=== PATIENT | male | born 1990 | race Caucasian/White ===

== ENCOUNTER 2017-03-26 13:47 | Emergency (ER) | payer OTHER ==
[~2017-03-26] VITALS: Ht 170.2 cm; Wt 80.0 kg
[2017-03-26 14:50] VITALS: BP 135/84
== END 2017-03-26 14:50 | disposition home or self-care (01) ==
LOC: ED 13:47
DX: S50.01XA Contusion of right elbow, initial encounter (principal); M77.9 Enthesopathy, unspecified; R03.0 Elevated blood-pressure reading, without diagnosis of hypertension; W17.89XA Other fall from one level to another, initial encounter; Y93.89 Activity, other specified; Y99.8 Other external cause status; Y92.89 Other specified places as the place of occurrence of the external cause

== ENCOUNTER 2017-05-23 14:49 | Emergency (ER) | payer OTHER ==
[2017-05-23 17:02] LABS: BASOPHIL % 0.4 % (0-2); PLATELET COUNT 278 x10^3mcL (130-400); RED CELL DISTRIBUTION WIDTH 13.5 % (11.5-14.5)
[2017-05-23 17:28] LABS: CALCIUM 8.7 mg/dL (8.5-10.1); CHLORIDE SERUM 107 mmol/L (98-107); CREATININE SERUM 0.9 mg/dL (0.7-1.3); GFR1 > 60 mL/min; GLUCOSE SERUM 110 mg/dL (74-106); POTASSIUM SERUM 4.1 mmol/L (3.5-5.1); SODIUM SERUM 143 mmol/L (136-145)
[2017-05-23 17:33] LABS: ALBUMIN 3.8 g/dL (3.4-5.0); ALKALINE PHOSPHATASE 46 U/L (46-116); ALT/SGPT 18 U/L (16-63); AST/SGOT 11 U/L (15-37); BILIRUBIN TOTAL 0.31 mg/dL (0.20-1.00); TOTAL PROTEIN, SERUM 7.2 g/dL (6.4-8.2)
[2017-05-23 18:14] VITALS: BP 141/92
== END 2017-05-23 18:15 | disposition home or self-care (01) ==
LOC: ED 14:49
PROVIDERS: Emergency Medicine
DX: R55 Syncope and collapse (principal)
CPT/HCPCS: J2405

== ENCOUNTER 2019-01-10 14:11 | Emergency (ER) | payer OTHER ==
[~2019-01-10] VITALS: Ht 170.2 cm; Wt 81.6 kg
[2019-01-10 14:21] VITALS: Ht 170.2 cm; Wt 81.6 kg
[2019-01-10 15:07] VITALS: BP 127/49
== END 2019-01-10 15:07 | disposition home or self-care (01) ==
LOC: ED 14:11
DX: J06.9 Acute upper respiratory infection, unspecified (principal)

== ENCOUNTER 2019-09-30 20:17 | Emergency (ER) | payer SELFPAY ==
[~2019-09-30] VITALS: Ht 172.7 cm; Wt 85.8 kg
[2019-09-30 20:34] VITALS: Ht 172.7 cm; Wt 85.8 kg
[2019-09-30 21:18] VITALS: BP 119/98
== END 2019-09-30 21:18 | disposition home or self-care (01) ==
LOC: ED 20:17
DX: B35.4 Tinea corporis (principal)

== ENCOUNTER 2019-10-09 17:15 | Emergency (ER) | payer MEDICAID ==
[~2019-10-09] VITALS: Ht 170.2 cm; Wt 85.0 kg
[2019-10-09 17:22] VITALS: BP 150/94; Ht 170.2 cm; Wt 85.0 kg
== END 2019-10-09 20:53 | disposition home or self-care (01) ==
LOC: ED 17:15
DX: S93.402A Sprain of unspecified ligament of left ankle, initial encounter (principal); B86 Scabies; X58.XXXA Exposure to other specified factors, initial encounter; Y93.89 Activity, other specified; Y92.89 Other specified places as the place of occurrence of the external cause; Y99.8 Other external cause status